=== PATIENT | male | born 1935 | race Caucasian/White ===

== ENCOUNTER 2018-04-28 10:05 | Inpatient (IN) | payer MEDICARE, OTHER ==
[~2018-04-28] VITALS: Ht 175.3 cm; Wt 93.7 kg
[~2018-04-28 10:05] MED LIST: ASPI-515 PO; OMEP-110 PO
[2018-04-28] MEDS ORDERED: ENALAPRILAT 1.25 MG/ML, 2ML IVPush PRN (12:00)
[2018-04-28] MEDS ORDERED: ONDANSETRON ODT 4 MG PO PRN (12:00)
[2018-04-28] MEDS ORDERED: LABETALOL 5MG/ML, 20ML IVPush PRN (12:00)
[2018-04-28] MEDS ORDERED: IBUPROFEN 600 MG TABLET PO PRN (12:00)
[2018-04-28] MEDS ORDERED: BISACODYL 10 MG SUPP PR PRN (12:00)
[2018-04-28] MEDS ORDERED: DOCUSATE 100 MG CAPSULE PO PRN (12:00)
[2018-04-28] MEDS ORDERED: POLYETHYLENE GLYCOL 17 GM PACKET PO PRN (12:00)
[2018-04-28] MEDS ORDERED: ACETAMINOPHEN 325 MG TABLET PO PRN (12:00)
[2018-04-28] MEDS ORDERED: GADOBUTROL 10 MMOL/10 ML PFS ONE (12:33)
[2018-04-28 13:03] VITALS: BP 154/85
[2018-04-28 13:30] LABS: HCT (SEDRATE) 46.5 % (39.2-51.8)
[2018-04-28] MEDS: ENOXAPARIN 40 MG/0.4 ML SQ SCH (13:50)
[2018-04-28 19:47] LABS: MICROSCOPIC INDICATED
[2018-04-28 20:34] LABS: CULTURE INDICATED? NO
[2018-04-28 20:35] VITALS: BP 149/83
[2018-04-29 03:05] VITALS: BP 152/88
[2018-04-29 05:53] LABS: BASOPHILS # (AUTO) 0.04 x10^3/uL (0-0.1); BASOPHILS % (AUTO) 1 % (0-1); EOSINOPHILS # (AUTO) 0.18 x10^3/uL (0-0.4); EOSINOPHILS % (AUTO) 3 % (1-7); LYMPHOCYTES # (AUTO) 2.23 x10^3/uL (1-3.4); LYMPHOCYTES % (AUTO) 32 % (22-44); MD NO; MEAN CORPUSCULAR HGB CONC 34.1 g/dL (33.2-36.2); MEAN CORPUSCULAR VOLUME 90.9 fL (81-97); MONOCYTES # (AUTO) 0.57 x10^3/uL (0.2-0.8); MONOCYTES % (AUTO) 8 % (2-9); NEUTROPHILS # (AUTO) 3.96 x10^3/uL (1.8-6.8); NEUTROPHILS % (AUTO) 57 % (42-75); PLATELET COUNT 293 x10^3/uL (130-400); RED BLOOD COUNT 5.14 x10^6/uL (4.38-5.82); RED CELL DISTRIBUTION WIDTH 14.1 % (9.4-14.8)
[2018-04-29 06:05] LABS: CHLORIDE 104 mmol/L (98-107)
[2018-04-29 06:10] LABS: ANION GAP 5 mmol/L (5-15); CALCIUM 8.9 mg/dL (8.5-10.1); CREATININE 0.94 mg/dL (0.7-1.3)
[2018-04-29 07:28] VITALS: BP 135/81
[2018-04-29] MEDS ORDERED: OMEPRAZOLE 20 MG CAPSULE.DR PO SCH (09:00)
[2018-04-29] MEDS ORDERED: ASPIRIN 81 MG TABLET EC PO SCH (09:00)
[2018-04-29] MEDS ORDERED: LISINOPRIL 10 MG TABLET PO SCH (09:00)
[2018-04-29] MEDS ORDERED: LISI-167 PO (10:50)
[2018-04-29] MEDS: ENOXAPARIN 40 MG/0.4 ML SQ SCH (12:00)
== END 2018-04-29 13:40 | disposition home or self-care (01) | DRG 123 ==
LOC: ED 10:34 → EDIP 11:01 → 4EST 11:57 → DCLOUNGE 04-29 13:18
PROVIDERS: ADMIT Family Medicine; ATTEND Family Medicine
DX: H49.22 Sixth [abducent] nerve palsy, left eye (principal); H26.9 Unspecified cataract; G20 Parkinson's disease; F02.80 Dementia in other diseases classified elsewhere, unspecified severity, without behavioral disturbance, psychotic disturbance, mood disturbance, and anxiety; Z66 Do not resuscitate; I10 Essential (primary) hypertension; Z87.891 Personal history of nicotine dependence; Z80.1 Family history of malignant neoplasm of trachea, bronchus and lung; Z82.49 Family history of ischemic heart disease and other diseases of the circulatory system; Z83.3 Family history of diabetes mellitus; Z72.89 Other problems related to lifestyle
CPT/HCPCS: 36415; 70543; 70553; 80048; 81001; 84145; 85025; 85651; 86140; 87040; 96372; 99285; A9585; G0378; J1650